=== PATIENT | male | born 1940 | race Caucasian/White ===

== ENCOUNTER 2018-07-15 12:39 | Observation (INO) ==
[2018-07-15] MEDS ORDERED: ASPIRIN PO ONE (12:52)
--- NOTE | 2018-07-15 13:08 | EKG Report ---
Test Performed on : 07/15/2018 12:49:52 PM Test Reason : CHEST PAIN/SOB Blood Pressure : / mmHG Vent. Rate : 081 BPM Atrial Rate : 081 BPM P-R Int : 170 ms QRS Dur : 102 ms QT Int : 406 ms P-R-T Axes : 093 092 094 degrees QTc Int : 471 ms Suspect arm lead reversal, interpretation assumes no reversal Normal sinus rhythm. Rightward axis Borderline ECG When compared with ECG of 15-JUL-2018 12:48, (Unconfirmed) No significant change was found Unconfirmed Result
--- NOTE | 2018-07-15 13:17 | Diag Imaging Result Doc PS360 ---
CHEST-2 VIEWS - 07/15/2018 INDICATION: SOB/CHEST PAIN COMPARISON: 06/01/2018 FINDINGS: Stable advanced COPD. Stable significant scarring or consolidation in the left upper lobe, with lesser reticulonodular scarring at the right upper lobe. Stable spine fusion rods. No new or focal infiltrates. Heart size remains normal. Stable left-sided rib deformities. IMPRESSION: Advanced chronic changes. Electronically signed by Bhupinder Antoine 07/15/2018 1:15 PM
[2018-07-15 13:47] LABS: BASO# 0.05 X1000 (0.0-0.2); BASO% 0.5 % (0.0-0.8); EOS# 0.16 X1000 (0.0-0.7); EOS% 1.7 % (0.0-10.0); HEMOGLOBIN 13.8 g/dL (14.0-18.0); IMM GRAN# 0.05 X1000 (0.0-0.04); IMM GRAN% 0.5 % (0.0-0.5); LYMPH# 2.51 X1000 (1.2-3.4); LYMPH% 27.1 % (20.5-51.1); MCH 29.9 PG (27-31); MCHC 31.4 g/dL (33-37); MCV 95.4 FL (81-99); MONO# 0.81 X1000 (0.11-0.59); MONO% 8.7 % (1.7-9.3); MPV 9.5 FL (7.4-10.4); NEUT# 5.68 X1000 (1.4-6.5); NEUT% 61.5 % (42.2-75.2); PLT 388 X1000 (130-400); RBC 4.61 XMIL (4.7-6.1); RDW 13.3 % (11.5-14.5); WBC 9.26 X1000 (4.8-10.8)
[2018-07-15 13:54] LABS: INR 0.85; PROTIME 12.3 Seconds (11.0-16.0); PTT 27.3 Seconds (22.3-41.8)
[2018-07-15 14:08] LABS: AGAP 13; ALB/GLOB RATIO 1.3; ALKALINE PHOSPHATASE 77 U/L (32-122); BUN 8 mg/dL (8-22); CALCIUM 9.6 mg/dL (8.8-10.2); CHLORIDE 101 mmol/L (98-107); CK PROFILE 37 U/L (24-204); COSMO 280; CREATININE 0.7 mg/dL (0.7-1.2); ESTIMATED GFR > 60; GLUCOSE 67 mg/dL (70-104); GOT 14 U/L (10-34); GPT 13 U/L (10-44); POTASSIUM 4.4 mmol/L (3.5-5.1); SODIUM 142 mmol/L (136-145); TCO2 28 mmol/L (25-35); TOTAL BILIRUBIN 0.27 mg/dL (0.20-1.00); TOTAL PROTEIN 7.2 g/dL (6.3-8.3)
[2018-07-15] MEDS ORDERED: DUONEB (A & A) INH ONE (14:55)
[2018-07-15] MEDS ORDERED: DECADRON IV ONE (14:55)
[2018-07-15 15:45] LABS: ALLEN TEST YES; BE 5.8 mmoll (-3.0-3.0); BLOOD TYPE ARTERIAL; HCO3-(ACT) 29.4 mmoll (20.0-26.0); O2(CT) 17.2 mL/dL (15.0-23.0); PCO2(98.6) 44 mmHg (35-45); PO2(98.6) 124 mmHg (60-100); SAMPLE BLOOD; SAO2 97.1 % (95.0-100.0); THB 12.5 g/dL (11.5-17.4); pH(98.6) 7.45 (7.35-7.45)
[2018-07-15 15:46] LABS: MODALITY CANNULA
[2018-07-15] MEDS: ASPIRIN PO SCH (16:35)
--- NOTE | 2018-07-15 17:38 | HISTORY AND PHYSICAL ---
CHIEF COMPLAINT: Chest pressure and dyspnea. HISTORY OF PRESENT ILLNESS: The patient is a 77-year-old white male with a history of COPD, chronic hypoxic respiratory failure on 3 liters at home, coronary artery disease, paroxysmal atrial fibrillation, neurogenic bladder with chronic incontinence, BPH and osteopenia. He presents with 2-3 days of substernal chest pressure off and on, somewhat worse with exertion and better with rest, although it has been present even at rest. Associated with shortness of breath. He states that the shortness of breath just was not getting better, so he came in. He is on nebulizer treatments at home which did not improve his dyspnea or chest pressure. It has been coming and going. It was not getting better, and his regular camp maintenance supervisor Dr. Mayberry was not in the office today, so he decided to come to the ER. He denies fever, chills, nausea, vomiting, diaphoresis or night sweats. In the ER he was given steroids and nebulizer treatments, which he says have significantly improved his dyspnea, and his chest pressure is now essentially gone. Initial pulmonary workup in the ER was essentially unremarkable with good oxygenation on less oxygen than he is on at home, normal CO2 and clear chest x-ray; however, because of the patient's cardiac history, smoking history and complaints of chest pressure, we are admitting him to observation to rule out acute coronary syndrome with serial troponins. Will also check an EKG. Will also monitor on telemetry to make sure that the paroxysmal atrial fibrillation is not contributing to his dyspnea and chest pressure. REVIEW OF SYSTEMS: A 12-point review of systems is negative except as per HPI. ALLERGIES: The patient denies drug allergies, but the medical records state that he is allergic to fluticasone, IV contrast, salmeterol and tiotropium. Of note, the patient is on DuoNeb at home, so doubt this is a real allergy. PAST MEDICAL HISTORY: 1. COPD. 2. Chronic hypoxemic respiratory failure. 3. Coronary artery disease. 4. Paroxysmal atrial fibrillation. 5. Neurogenic bowel. 6. BPH. 7. Osteopenia. 8. Former smoker. PAST SURGICAL HISTORY: 1. Back surgery x2. 2. Left femur fracture repair. 3. Left shoulder surgery. SOCIAL HISTORY: The patient is a former heavy smoker but quit approximately 2 years ago. Denies alcohol and illicit drug use. FAMILY HISTORY: Mother because of COPD. He does not know his father and does not know if he is living or not, or anything about his medical history. LABS: Hemoglobin 13.1. CBC otherwise unremarkable. PT/INR unremarkable. ABG with pH of 7.45, pCO2 of 44, pO2 of 124, saturation 97% on 2 liters by nasal cannula. On complete metabolic panel, glucose is minimally low at 67. Otherwise, all values are within normal limits. Troponin negative. BNP 70. IMAGING: Chest x-ray with evidence of COPD but no acute process. PHYSICAL EXAMINATION: VITAL SIGNS: T max 96.8, heart rate 76, initial respiratory rate 26 (repeat respiratory rate 17), blood pressure 147/92, O2 saturation 98% on 2 liters by nasal cannula. GENERAL: No acute distress. Vitals as above HEENT: Normocephalic, atraumatic. Moist mucous membranes. NECK: No cervical adenopathy. CARDIOVASCULAR: Regular rate and rhythm. No murmurs, rubs or gallops. PULMONARY: Mildly decreased air entry throughout. Faint end expiratory wheeze but otherwise clear to auscultation bilaterally. ABDOMEN: Soft, nontender, nondistended. Bowel sounds positive EXTREMITIES: Peripheral pulses decreased but intact. No clubbing, cyanosis, or edema. NEUROLOGIC: Cranial nerves II-XII grossly intact. No focal motor or sensory deficits, though the patient is hard of hearing. PSYCHIATRIC: Normal mood and affect. Awake, alert and oriented x3. SKIN: No new rashes or lesions noted. ASSESSMENT/PLAN: 1. Chest pain/pressure. Initial troponin negative. Initial EKG unremarkable. Will trend cardiac enzymes and watch on telemetry overnight. The patient does have a history of paroxysmal atrial fibrillation, and while he has been normal sinus rhythm here, if he is going in and out of atrial fibrillation, that may contribute to his symptoms. If troponins remain negative and no events are noted on the telemetry, then he can likely be discharged home tomorrow. Will give aspirin and check lipid panel. Nitrates as needed. 2. Chronic obstructive pulmonary disease with possible mild exacerbation. Patient with normal oxygenation, normal CO2 and significantly improved dyspnea. Will continue DuoNeb treatments and some IV steroids. Can likely be discharged home on a steroid taper tomorrow, to follow up with h is regular camp maintenance supervisor, Dr. Mayberry. 3. Paroxysmal atrial fibrillation. Normal sinus rhythm here, but has been in and out of atrial fibrillation in the past. Monitor on telemetry overnight. Continue home amiodarone and diltiazem. 4. Coronary artery disease. Continue aspirin as above. 5. Benign prostatic hypertrophy. Continue home tamsulosin. 6. Neurogenic bladder with chronic incontinence noted. Will give supportive care while he is here. 7. Deep venous thrombosis prophylaxis with Lovenox. DISPOSITION: Likely home tomorrow if cardiac workup is unremarkable.
--- NOTE | 2018-07-15 17:39 | PROVIDER DOCUMENTATION ---
This chart was entered by Antonieta Tinoco Scribe, acting as scribe for Francis Hassan MD. HPI-Respiratory General - General Chief Complaint: Shortness of Breath Stated Complaint: SOB Time Seen by Provider: 07/15/18 14:39 Source: patient Allergies/Adverse Reactions: Patient Allergies Allergy/AdvReac Type Severity Reaction Status Date / Time fluticasone propionate * Allergy Unknown Unknown Verified 07/15/18 15:30 [From Advair Diskus] Iodinated Contrast- Oral and Allergy Unknown Unknown Verified 07/15/18 15:30 IV Dye salmeterol xinafoate * Allergy Unknown Unknown Verified 07/15/18 15:30 [From Advair Diskus] tiotropium bromide * Allergy Unknown Unknown Verified 07/15/18 15:30 [From Spiriva with HandiHaler] Home Medications: Home Medication List Medication Instructions Recorded Confirmed Last Taken Type Aspirin EC 81 mg PO DAILY 05/30/13 07/15/18 07/15/18 07:00 History Tamsulosin [Flomax] 0.4 mg PO DAILY 05/30/13 07/15/18 07/15/18 07:00 History Amiodarone [Cordarone] 200 mg PO DAILY #90 tablet 02/07/14 07/15/18 07/15/18 07: 00 Rx Albuterol 2.5MG/Ipratrop 0.5MG 3 ml INH RTQ4H #0 neb 06/16/15 07/15/18 07/15/18 12:00 Rx [Duoneb (A & A)] Diltiazem HCl [Diltiazem ER] 120 mg PO QAM 07/15/18 07/15/18 07/15/18 07:00 History Sennosides/Docusate Sodium 1 each PO BID 07/15/18 07/15/18 07/15/18 07:00 History [Pericolace] - History of Present Illness-Resp Nature of Presenting Problem: 77yom with hx COPD sob and productive cough with yellow sputum 3-4 days. He reports he uses albuterol for breathing treatment at home. He reports his PCP as Dr. Jorge. He denies fever, chills, nausea, vomiting, diarrhea, cp, and sob. The patient's niece is at bedside. Quality of Pain: reports: none Severity in ED: reports: mild Onset/Duration: reports: 3 days ago, 4 days ago Timing: reports: still present, intermittent, constant Cough Quality/Degree: reports: mild, moderate, productive cough, sputum (yellow) Episode Frequency: other (hx COPD) Modifying Factors: improves with: nothing Associated Symptoms: reports: cough, shortness of breath. denies: chest pain/ soreness, fever/chills Similar Symptoms Previously?: No Recently seen or treated by another doctor?: No Review of Systems - Adult - REVIEW OF SYSTEMS - ADULT Constitutional: denies: chills, fever Eyes: denies: discharge, dry eyes Ears, Nose, Mouth & Throat: denies: ear discharge, ear pain Cardiovascular: denies: chest pain, palpitations Respiratory: reports: cough, shortness of breath Gastrointestinal: denies: abdominal pain, diarrhea, nausea, vomiting Genitourinary: denies: dysuria, hematuria Musculoskeletal: denies: back pain, muscle aches, muscle weakness Integumentary: reports: no symptoms reported Neurological: denies: dizziness/vertigo, headache/migraines Psychiatric: reports: no symptoms reported Endocrine: reports: no symptoms reported Hematologic/Lymphatic: reports: no symptoms reported Allergic/Immunologic: reports: no symptoms reported All Other Systems: Reviewed and Negative Past History - Adult - PAST MEDICAL HISTORY-ADULT Review of Records: reports: Old Records Reviewed, Nursing Assessment Review, Medications Reviewed Major Childhood Illnesses: reports: denies history Cardiovascular: reports: arrhythmia, hyperlipidemia Respiratory: reports: asthma, COPD Gastrointestinal: reports: denies history Obstetrical/Gynecological: reports: denies history Genitourinary: reports: denies history Musculoskeletal: reports: neck/back injury (spinal injury on T4 (no feeling below T4)) Neurological: reports: denies history Endocrine/Immune: reports: denies history Other Conditions: reports: denies history - PRIOR SURGERIES/PROCEDURES Surgical/Procedure History: reports: hernia repair, back/neck (back surgery) - IMMUNIZATION STATUS Childhood Immunizations: UTD Flu Vaccine: UTD - FAMILY HISTORY Family History: reviewed, not pertinent - SOCIAL HISTORY Smoking: other (former) Substance Use: denies Living Situation: family Physical Exam-General - PHYSICAL EXAM-ADULT Initial Vital Signs Reviewed: Yes - CONSTITUTIONAL General Appearance: alert, mild distress - EYES Eyes: PERRL/EOMI, pink conjunctivae - NECK Neck: non-tender, supple - RESPIRATORY Respiratory: respiratory distress, accessory muscle use, wheezing, other ( tachypneic, poor air entry) - CARDIOVASCULAR Cardiovascular: regular rate, rhythm, no murmur - GASTROINTESTINAL (ABDOMEN) Abdominal Exam: non tender, soft - MUSCULOSKELETAL Extremity: normal range of motion, non-tender, normal inspection, no pedal edema - SKIN Integumentary: normal color, warm/dry - NEUROLOGIC Neurologic: grossly normal, no motor/sensory deficits - PSYCHIATRIC Psych/Mental Status: normal mood/affect, normal thought content, normal thought process, oriented x 3 Progress - PLAN OF CARE/RESULTS Progress/Plan/Lab Results: Vital Signs - 8 hr 07/15/18 12:46 07/15/18 15:21 Temperature 96.8 F L Pulse Rate 88 76 Respiratory Rate 26 H 17 Blood Pressure 147/92 O2 Sat by Pulse Oximetry 96 97 Laboratory Results - last 24 hr 07/15/18 07/15/18 07/15/18 12:55 12:55 12:55 WBC 9.26 RBC 4.61 L Hgb 13.8 L Hct 44.0 MCV 95.4 MCH 29.9 MCHC 31.4 L RDW Std Deviation 13.3 Plt Count 388 MPV 9.5 Immature Gran % (Auto) 0.5 Neut % (Auto) 61.5 Lymph % (Auto) 27.1 [place] % (Auto) 8.7 Eos % (Auto) 1.7 Baso % (Auto) 0.5 Immature Gran # (Auto) 0.05 H Neut # (Auto) 5.68 Lymph # (Auto) 2.51 [place] # (Auto) 0.81 H Eos # (Auto) 0.16 Baso # (Auto) 0.05 PT INR PTT (Actin FS) Specimen Type Sample Site pH pCO2 pO2 HCO3 Base Excess Oxyhemoglobin ABG O2 Sat (Calculated) ABG O2 Saturation ABG Carboxyhemoglobin ABG Methemoglobin Kashif Test A-a O2 Difference Total Hemoglobin Lactate Liter Flow Blood Gas Modality FiO2 % Sodium 142 Potassium 4.4 Chloride 101 Carbon Dioxide 28 Anion Gap 13 BUN 8 Creatinine 0.7 Estimated GFR/1.73 m2 > 60 BUN/Creatinine Ratio 11 Glucose 67 L Calculated Osmolality 280 Calcium 9.6 Total Bilirubin 0.27 AST 14 ALT 13 Alkaline Phosphatase 77 Creatine Kinase 37 Troponin T Kwy-[id number]-Ofwxfzgrjgv Pept 70 Total Protein 7.2 Albumin 4.0 Globulin 3.2 Albumin/Globulin Ratio 1.3 07/15/18 07/15/18 07/15/18 12:55 12:55 15:36 WBC RBC Hgb Hct MCV MCH MCHC RDW Std Deviation Plt Count MPV Immature Gran % (Auto) Neut % (Auto) Lymph % (Auto) [place] % (Auto) Eos % (Auto) Baso % (Auto) Immature Gran # (Auto) Neut # (Auto) Lymph # (Auto) [place] # (Auto) Eos # (Auto) Baso # (Auto) PT 12.3 INR 0.85 PTT (Actin FS) 27.3 Specimen Type ARTERIAL Sample Site R RADIAL pH 7.45 pCO2 44 pO2 124 H HCO3 29.4 H Base Excess 5.8 H Oxyhemoglobin 97.0 ABG O2 Sat (Calculated) 17.2 ABG O2 Saturation 97.1 ABG Carboxyhemoglobin 0.00 L ABG Methemoglobin 0.0 Kashif Test YES A-a O2 Difference 21.0 Total Hemoglobin 12.5 Lactate 0.70 Liter Flow 2.0 Blood Gas Modality CANNULA FiO2 % 28.0 Sodium Potassium Chloride Carbon Dioxide Anion Gap BUN Creatinine Estimated GFR/1.73 m2 BUN/Creatinine Ratio Glucose Calculated Osmolality Calcium Total Bilirubin AST ALT Alkaline Phosphatase Creatine Kinase Troponin T < 0.010 Uyr-R-Idhhgyuqapx Pept Total Protein Albumin Globulin Albumin/Globulin Ratio Orders Category Date Time Status Cardiac Monitoring DIRECTED Care 07/15/18 12:52 Active Oxygen Therapy- ED Nursing DIRECTED Care 07/15/18 12:52 Active Saline Loc NOW Care 07/15/18 12:52 Active CHEST-2 VIEWS [RAD] Stat Exams 07/15/18 12:52 Completed ABG [RESP] Routine Lab 07/15/18 15:36 Completed CBC WITH ELECTRONIC DIFF [HEME] Stat Lab 07/15/18 12:55 Completed CK PROFILE [SP CHEM] Stat Lab 07/15/18 12:55 Completed COMPREHENSIVE METABOLIC PANEL [CHEM] Stat Lab 07/15/18 12:55 Completed PRO B-NATRIURETIC PEPTIDE Stat Lab 07/15/18 12:55 Completed PROTIME WITH INR [COAG] Stat Lab 07/15/18 12:55 Completed PTT [COAG] Stat Lab 07/15/18 12:55 Completed TROPONIN T Stat Lab 07/15/18 12:55 Completed Albuterol 2.5MG/Ipratrop 0.5MG [Duoneb (A & A)] Med 07/15/18 14:55 Discontinued 9 ml INH NOW ONE Aspirin Med 07/15/18 16:35 Active 325 mg PO DAILY Aspirin Med 07/15/18 12:52 Discontinued 325 mg PO NOW ONE Dexamethasone [Decadron] Med 07/15/18 14:55 Discontinued 10 mg IV NOW ONE Methylprednisolone Sod Succ [Solu-Medrol] Med 07/16/18 09:00 Active 40 mg IV DAILY Aerosol Treatments Routine Oth 07/15/18 14:55 Completed Aerosol Treatments Stat Oth 07/15/18 14:55 Completed CP/SOB/Palp >45 yrs of Age Stat Oth 07/15/18 12:52 Ordered EKG [EKG] Stat Ther 07/15/18 12:52 Draft Transfer/Admit Order [TRANSFER] Routine Transfer 07/15/18 16:30 Ordered Patient care, assessment and plan discussed with the attending physician Dr. Morrison and he agree with the plan as documented. Result Diagrams: 07/15/18 12:55 07/15/18 12:55 - REASSESSMENT Reassessment #1 Time Reassessed: 15:49 Status: unchanged (still tachypneic and accessory muscle use) Reassessment #2 Time Reassessed: 16:34 Status: other (Accepted by hospitalist.) - EKG 1 Time of EKG reading by physician:: 12:50 EKG Read and Signed by:: Vargas Morrison EKG Interpretation (*Must complete 3 of following elements*): Abnormal Rate: 81 Rhythm: Normal sinus rhythm [place]: right QRS: normal - XRAY 1 XRAY Study: Chest Impression: Abnormal (FINDINGS: Stable advanced COPD. Stable significant scarring or consolidation in the left upper lobe, with lesser reticulonodular scarring at the right upper lobe. Stable spine fusion rods. No new or focal infiltrates. Heart size remains normal. Stable left-sided rib deformities. IMPRESSION: Advanced chronic changes.) - CONSULTS/PCP/HOSPITALIST Notification #1 *Consult/PCP/Hospitalist*: BRAYAN Martínez admitting for Dr. Foley Time Discussed: 16:06 Consult Disposition: Will see in ED Departure - Departure Date of Disposition Decision: 07/15/18 Time of Disposition Decision: 16:05 DIAGNOSIS: COPD exacerbation Disposition: ADMITTED INPATIENT 09 Certified Medical Emergency: Emergent Condition: Stable Additional Freetext Instructions: ED Follow Up Instructions: You have been treated by a care provider in the Emergency Department. These instructions are being provided to you so you can have an understanding of how to care for yourself upon discharge. Upon discharge from the Emergency Department, you are responsible for making arrangements for follow-up care by a physician of your choice. Take all prescribed medications as directed. Return to the Emergency Department immediately for any new or worsening symptoms. You may call the Physician Referral phone number at [phone] to obtain a list of Physicians who are taking new patients. Referrals and Follow-Ups: Jarad Goodwin DO [Primary Care Provider] - - Critical Care Note This patient required my direct & personal management of CC.: No Attestation - Physician/ YARELY Attestation Patient care was provided by Advanced Practice Provider:: No The physician spent face to face time with patient:: Yes Advanced Practice Provider documentation review:: Supervising physician onsite and consulted in the evaluation and care of this patient. The physician did have a face to face encounter with the patient. This chart was documented by the indicated scribe, (Antonieta Tinoco, Zinaibnettie) and accurately reflects the services I performed and decisions made by me, Francis Hassan MD, as attested by the provider's signature.
[2018-07-15] MEDS ORDERED: TYLENOL PO PRN (20:25)
[2018-07-15] MEDS ORDERED: NITROGLYCERIN SL PRN (20:25)
[2018-07-15] MEDS ORDERED: ZOFRAN IV PRN (20:25)
[2018-07-15] MEDS ORDERED: LOVENOX SUBQ SCH (21:00)
[2018-07-15] MEDS: DUONEB (A & A) INH SCH ×2 (21:10→23:00)
[2018-07-15 21:43] LABS: AGAP 12; BUN 10 mg/dL (8-22); CALCIUM 9.4 mg/dL (8.8-10.2); CHLORIDE 98 mmol/L (98-107); COSMO 277; CREATININE 0.8 mg/dL (0.7-1.2); ESTIMATED GFR > 60; GLUCOSE 168 mg/dL (70-104); POTASSIUM 4.4 mmol/L (3.5-5.1); SODIUM 137 mmol/L (136-145); TCO2 27 mmol/L (25-35)
[2018-07-16] MEDS: DUONEB (A & A) INH SCH ×2 (02:44→07:43)
[2018-07-16 06:23] LABS: BASO# 0.01 X1000 (0.0-0.2); BASO% 0.2 % (0.0-0.8); HEMATOCRIT 38.3 % (42.0-52.0); HEMOGLOBIN 12.1 g/dL (14.0-18.0); LYMPH# 0.54 X1000 (1.2-3.4); LYMPH% 12.2 % (20.5-51.1); MCH 29.9 PG (27-31); MCHC 31.6 g/dL (33-37); MCV 94.6 FL (81-99); MONO# 0.11 X1000 (0.11-0.59); MONO% 2.5 % (1.7-9.3); MPV 9.2 FL (7.4-10.4); NEUT# 3.77 X1000 (1.4-6.5); NEUT% 85.1 % (42.2-75.2); PLT 334 X1000 (130-400); RBC 4.05 XMIL (4.7-6.1); RDW 13.1 % (11.5-14.5); WBC 4.43 X1000 (4.8-10.8)
[2018-07-16 06:42] LABS: CHOLESTEROL 206 mg/dL (0-200); HDL 110 mg/dL (35-55); LDL 86 mg/dL; TRIGLYCERIDES 49 mg/dL (39-160); VLDL 10 mg/dL
[2018-07-16] MEDS ORDERED: PRILOSEC PO SCH (07:00)
[2018-07-16] MEDS: ASPIRIN PO SCH (08:31)
[2018-07-16 08:38] VITALS: BP 106/69
[2018-07-16] MEDS ORDERED: CARDIZEM CD PO SCH (09:00)
[2018-07-16] MEDS ORDERED: FLOMAX PO SCH (09:00)
[2018-07-16] MEDS ORDERED: SOLU-MEDROL IV SCH (09:00)
[2018-07-16] MEDS ORDERED: CORDARONE PO SCH (09:00)
--- NOTE | 2018-07-16 20:33 | DISCHARGE SUMMARY ---
ADMISSION DATE: 07/15/2018 DISCHARGE DATE: 07/16/2018 CONTINUATION REPORT RADIOLOGICAL DATA: Initial chest x-ray with advanced COPD and scarring, but no acute abnormalities. LABORATORY DATA: Hemoglobin 12.1, hematocrit 38.3, WBC 4.4, platelets 334,000. PT/INR within normal limits. ABG with pH 7.45, pCO2 of 44, PO2 of 124, O2 saturation 97% on 2 L by nasal cannula. Complete metabolic panel significant only for glucose 168. BNP 70. Troponins negative x3. Cholesterol 206, LDL 86. HDL 110. HOSPITAL COURSE: Patient presented complaining primarily of dyspnea which been progressing for a year, but worse in the last 3 to 4 days. Reportedly had some wheezing, tachypnea, and decreased air entry on presentation to the ER, where he was treated with steroids and DuoNeb. At about the time of admission, patient had some faint wheezing but good air entry. He was oxygenating well on less oxygen than he is on home; he is on 3 L at home and saturating well on 2 L here. There was no hypercapnia noted on ABG. No leukocytosis, no fevers, and chest x-ray showed no acute process. He did describe some pressure-like chest tightness over the last 1 to 2 days with some worsening with exertion, so cardiac workup was undertaken. EKG showed no acute ST changes. Troponins were negative x3. Patient's chest discomfort resolved along with his dyspnea with steroids and breathing treatments. As ACS was ruled out, patient's symptoms were essentially resolved, and his respiratory status was stable. 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 Mayberry. During the hospitalization, patient also remarked that he checked his pulse at home and is frequently down into the 40s with some orthostatic dizziness associated with those periods where his heart rate is low, so his diltiazem was held. off diltiazem heart rates in the 50s and 60s were noted during his stay. It was recommended that he discuss whether it is okay to stay off this or if he may need a different agent with his regular doctor. He was continued on his amiodarone. no episodes of atrial fibrillation noted during the hospitalization. DISCHARGE DIAGNOSES: 1. Chest pain. 2. Chronic obstructive pulmonary disease (COPD) with mild exacerbation. 3. Chronic high hypoxic respiratory failure. 4. Paroxysmal atrial fibrillation. 5. BPH. 6. Osteopenia. DISCHARGE VITAL SIGNS: Temperature 97.4 degrees, pulse 83, respirations 15, blood pressure 106/69, O2 saturation 97% on 3 L by nasal discharge. DISCHARGE PHYSICAL EXAMINATION: General: No acute distress. Vitals: As above. HEENT: Normocephalic, atraumatic. Moist mucous membranes. Neck: No cervical adenopathy. Cardiovascular: Rate slightly bradycardic but regular. No murmurs noted. Pulmonary: Mildly decreased air entry throughout. Very faint end expiratory wheeze, compared with previous. Abdomen: Soft, nontender, nondistended. Bowel sounds positive. Extremities: Peripheral pulses decreased but intact. No clubbing, cyanosis, or edema. Neurologic: Cranial nerves 2 through 12 grossly intact. Globally weak but no focal deficits. Psychiatric: Normal mood and affect. Awake, alert, and oriented x3. Skin: No new rashes or lesions noted. DISCHARGE DIET: Low salt. DISCHARGE MEDICATIONS: 1. Aspirin 81 mg p.o. daily. 2. Lindy-Colace b.i.d. as at home. 3. Flomax 0.4 mg p.o. daily. 4. DuoNeb q.4 h. as needed. 5. Amiodarone 200 mg p.o. daily. 6. Medrol Dosepak as directed. FOLLOW-UP AND PLAN: Patient discharged home on steroid taper for mild COPD exacerbation. Continue amiodarone, but stop diltiazem because of bradycardia and dizziness. Follow-up with washerette machine operator for pulmonary check and to see if he may need a more extended steroid taper. Follow up with Cardiology to discuss whether he may remain off diltiazem permanently or if he may need another agent. COORDINATION TIME: Greater than 30 minutes spent arranging discharge and counseling patient. [facility]
== END 2018-07-16 10:11 | disposition home or self-care (01) ==
LOC: ED 12:39 → INTOOBSV 19:33 → 3S 19:33
PROVIDERS: ADMIT Internal Medicine; ATTEND Internal Medicine
CPT/HCPCS: 36415; 71020; 71046; 80048; 80053; 80061; 82550; 82805; 83735; 83880; 84100; 84484; 85025; 85610; 85730; 93005; 93306; 94640; 94761; 94762; 96374; 99285; A9270; J1650